=== PATIENT | female | born 1995 | race Caucasian/White ===

== ENCOUNTER 2018-01-08 17:58 | Emergency (ER) | payer OTHER ==
[2018-01-08 18:27] VITALS: BP 134/68; PULSE 105; O2SAT 97
[2018-01-08] MEDS ORDERED: Sodium Chloride 0.9% 1000 ML 1,000 ML IV STA (19:12)
[2018-01-08] MEDS ORDERED: Sodium Chloride 0.9% 1000 ML 1,000 ML ONE (19:17)
[2018-01-08 19:35] LABS: BASOPHIL % 0.3 % (0.0-0.4); Basophil (Absolute #) 0.02 (0-0.4); Eosinophil % 2.6 % (0.00-5.0); Eosinophil (Absolute #) 0.18 (0-0.5); Granulocyte Absolute (ANC) 4.32 (1.4-6.9); Granulocytes % 61.3 % (36.0-66.0); Hematocrit 42.1 % (35-47); Hemoglobin 14.3 gm/dl (12.0-16.0); Lymphocyte (Absolute #) 2.18 (1.0-4.6); Mean Corpuscular Hemoglobin 28.5 pg (26-32); Mean Platelet Volume 11.3 fl (6-9.5); Monocyte (Absolute #) 0.34 (0.0-1.3); Monocytes % 4.8 % (0.0-12.0); Platelet Count 191 K/mm3 (150-450); Red Blood Count 5.01 M/mm3 (4.1-5.4); Red Cell Distribution Width 13.7 % (11.5-14.0)
--- NOTE | 2018-01-08 19:38 | ERPHSYRPT ---
- History of Present Illness Time Seen by Provider: 01/08/18 19:09 Historian: patient Exam Limitations: no limitations Patient Subjective Stated Complaint: pt here to find out if she is took 6 test and 2 came back positive, and states her dr will not see her. pt also co abd pain for a week. Triage Nursing Assessment: pt alert, resp easy, skin w/d/p,skin w/d/p. abd soft Physician History: Pt started c/o bilateral abdominal cramps x 3 days, nausea, denies vomiting, fever, chills, diarrhea or urinary complaints. She states, her last, normal menstrual period was 5 weeks ago, and she had 2 positive out of 6 tests at home. She had normal vaginal 11 months ago, denies surgeries or any complications. Timing/Duration: day(s) (3) Activities at Onset: none Quality: cramping Abdominal Pain Onset Location: RUQ, LUQ Pain Radiation: no radiation Severity of Pain-Max: moderate Severity of Pain-Current: none Modifying Factors: Improves With: nothing Associated Symptoms: nausea, other (white vaginal discharge) Previous symptoms: no prior history Allergies/Adverse Reactions: amoxicillin [From Augmentin] Allergy (Verified 01/08/18 18:17) clavulanic acid [From Augmentin] Allergy (Verified 01/08/18 18:17) latex Allergy (Verified 01/08/18 18:17) Sulfa (Sulfonamide Antibiotics) Allergy (Verified 01/08/18 18:17) Home Medications: No Reportable Medications [No Reported Medications] 01/08/18 [History] Hx Tetanus, Diphtheria Vaccination/Date Given: Yes Hx Influenza Vaccination/Date Given: No Hx Pneumococcal Vaccination/Date Given: No Immunizations Up to Date: Yes - Review of Systems Constitutional: No Symptoms Abdominal/Gastrointestinal: Abdominal Pain, Nausea Genitourinary Symptoms: Vaginal Discharge All Other Systems: Reviewed and Negative - Past Medical History Pertinent Past Medical History: No - Past Surgical History Past Surgical History: No - Social History Smoking Status: Current every day smoker Exposure to second hand smoke: Yes Drug Use: none Patient Lives Alone: No - Female History Hx Last Menstrual Period: 32 days ago Hx Now: Yes (unsure) - Nursing Vital Signs Nursing Vital Signs: Initial Vital Signs Temperature 99.5 F 01/08/18 18:10 Pulse Rate 105 H 01/08/18 18:10 Respiratory Rate 16 01/08/18 18:10 Blood Pressure 134/68 01/08/18 18:10 O2 Sat by Pulse Oximetry 97 01/08/18 18:10 Pain Scale Pain Intensity 0 - Physical Exam General Appearance: no apparent distress Eye Exam: eyes nml inspection Ears, Nose, Throat Exam: normal ENT inspection Neck Exam: normal inspection, non-tender, supple Respiratory Exam: normal breath sounds, lungs clear, airway intact Cardiovascular Exam: regular rate/rhythm, normal heart sounds, normal peripheral pulses, No murmur Gastrointestinal/Abdomen Exam: soft, normal bowel sounds, No tenderness, No distention, No mass, No guarding, No rebound, No hernia, No organomegaly Back Exam: normal inspection, No CVA tenderness Extremity Exam: normal inspection, calf tenderness, No pedal edema Neurologic Exam: alert, oriented x 3, normal mood/affect Skin Exam: normal color, warm, dry, No rash Lymphatic Exam: No adenopathy SpO2 Interpretation: normal SpO2: 97 Oxygen Delivery: Room Air - Course Nursing assessment & vital signs reviewed: Yes Ordered Tests: Active Orders 24 hr Category Date Time Status IV Insertion STAT Care 01/08/18 19:12 Active NPO (ED) STAT Care 01/08/18 19:12 Active ABDOMEN AND PELVIS W CONTRAST [CT] Stat Exams 01/08/18 20:27 Ordered CBC W DIFF Stat Lab 01/08/18 19:30 Completed CMP Stat Lab 01/08/18 19:30 Completed HCG, Quantitative (Inhouse) Stat Lab 01/08/18 19:30 Completed LIPASE Stat Lab 01/08/18 19:30 Completed UA W/RFX UR CULTURE Stat Lab 01/08/18 20:36 Completed Medication Summary Discontinued Medications Generic Name Dose Route Start Last Admin Trade Name Freq PRN Reason Stop Dose Admin Sodium Chloride 1,000 mls @ 999 mls/hr 01/08/18 19:12 01/08/18 19:41 Sodium Chloride 0.9% 1000 Ml IV 01/08/18 20:12 999 mls/hr .Q1H1M STA Administration Sodium Chloride Confirm 01/08/18 19:17 Sodium Chloride 0.9% 1000 Ml Administered 01/08/18 19:18 Dose 1,000 mls @ ud .ROUTE .[facility] Lab/Rad Data: Laboratory Result Diagrams 01/08/18 19:30 01/08/18 19:30 Laboratory Results 01/08/18 01/08/18 01/08/18 Range/Units 20:36 19:30 19:30 WBC 7.0 (4.0-10.5) K/mm3 RBC 5.01 (4.1-5.4) M/mm3 Hgb 14.3 (12.0-16.0) gm/dl Hct 42.1 (35-47) % MCV 84.0 (78-100) fl MCH 28.5 (26-32) pg MCHC 34.0 (32-36) g/dl RDW 13.7 (11.5-14.0) % Plt Count 191 (150-450) K/mm3 MPV 11.3 H (6-9.5) fl Gran % 61.3 (36.0-66.0) % Eos # (Auto) 0.18 (0-0.5) Absolute Lymphs (auto) 2.18 (1.0-4.6) Absolute Monos (auto) 0.34 (0.0-1.3) Lymphocytes % 31.0 (24.0-44.0) % Monocytes % 4.8 (0.0-12.0) % Eosinophils % 2.6 (0.00-5.0) % Basophils % 0.3 (0.0-0.4) % Absolute Granulocytes 4.32 (1.4-6.9) Basophils # 0.02 (0-0.4) Sodium 141 (137-145) mmol/L Potassium 3.5 (3.5-5.1) mmol/L Chloride 109 H (98-107) mmol/L Carbon Dioxide 23 (22-30) mmol/L Anion Gap 12.1 (5-15) MEQ/L BUN 12 (7-17) mg/dL Creatinine 0.62 (0.52-1.04) mg/dL Estimated GFR > 60.0 ML/MIN Glucose 97 (74-106) mg/dL Calcium 9.0 (8.4-10.2) mg/dL Total Bilirubin 0.40 (0.2-1.3) mg/dL AST 13 L (14-36) U/L ALT 13 (0-35) U/L Alkaline Phosphatase 64 (38-126) U/L Serum Total Protein 6.2 L (6.3-8.2) g/dL Albumin 3.7 (3.5-5.0) g/dL Lipase 42 (23-300) U/L Beta HCG, Quant < 2.39 mIU/ml Ur Collection Type VOID Urine Color YELLOW (YELLOW) Urine Appearance CLEAR (CLEAR) Urine pH 6.0 (5-6) Ur Specific [place] 1.020 (1.005-1.025) Urine Protein NEGATIVE (Negative) Urine Ketones NEGATIVE (NEGATIVE) Urine Blood NEGATIVE (0-5) Toni/ul Urine Nitrite NEGATIVE (NEGATIVE) Urine Bilirubin NEGATIVE (NEGATIVE) Urine Urobilinogen NORMAL (0-1) mg/dL Ur Leukocyte Esterase NEGATIVE (NEGATIVE) Urine Culture Reflexed NO (NO) Urine Glucose NEGATIVE (NEGATIVE) mg/dL Specimen Received 01-08 - Progress Progress: unchanged Progress Note: 01/08/18 21:10 I informed patient about labs, her quant. HCG<2.57, she is not , she is currently pain free, afebrile, and stable, I was planning to perform pelvic exam to do cultures, she refused further tests, and left AMA, understood all possible harmful ramifications of her decision. Counseled pt/family regarding: lab results - Departure Time of Disposition: 21:13 Departure Disposition: AMA Clinical Impression: Abdominal pain Qualifiers: Abdominal location: upper abdomen, unspecified Qualified Code(s): R10.10 - Upper abdominal pain, unspecified Condition: Stable Critical Care Time: No Referrals: DOCTOR,NO FAMILY [Primary Care Provider] - Instructions: Acute Abdomen (Belly Pain), Adult (DC) Additional Instructions: Return if severe pain, bleeding, fever> 102 F, follow up with your physician in 2-3 days!
[2018-01-08 19:55] LABS: ALBUMIN 3.7 g/dL (3.5-5.0); ALKALINE PHOSPHATASE 64 U/L (38-126); ANION GAP 12.1 MEQ/L (5-15); BLOOD UREA NITROGEN 12 mg/dL (7-17); CHLORIDE 109 mmol/L (98-107); Carbon Dioxide 23 mmol/L (22-30); Creatinine 1 0.62 mg/dL (0.52-1.04); Glucose 97 mg/dL (74-106); LIPASE 42 U/L (23-300); Potassium 3.5 mmol/L (3.5-5.1); SGOT/AST 13 U/L (14-36); SGPT/ALT 13 U/L (0-35); SODIUM 141 mmol/L (137-145); Total Protein 6.2 g/dL (6.3-8.2)
[2018-01-08 20:10] LABS: HCG, Quantitative (Inhouse) < 2.39 mIU/ml
[2018-01-08 20:41] LABS: Appearance CLEAR (CLEAR); Bilirubin NEGATIVE (NEGATIVE); Blood NEGATIVE Ery/ul (0-5); Glucose NEGATIVE (NEGATIVE); Ketones NEGATIVE (NEGATIVE); Leukocyte Esterase NEGATIVE (NEGATIVE); Nitrite NEGATIVE (NEGATIVE); Protein,Urine Dip NEGATIVE (Negative); Urobilinogen NORMAL mg/dL (0-1)
== END 2018-01-08 20:56 | disposition left against medical advice (07) ==
LOC: ED 17:58
DX: R10.11 Right upper quadrant pain (principal); R10.12 Left upper quadrant pain; R11.0 Nausea
CPT/HCPCS: 36000; 36415; 80053; 81002; 83690; 84702; 85025; 96374; 99284

== ENCOUNTER 2018-01-26 20:58 | Emergency (ER) | payer OTHER ==
[2018-01-26 21:24] VITALS: O2SAT 100
[2018-01-26] MEDS ORDERED: Norco 10/325 MG Tablet PO ONE (21:53)
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
[2018-01-26] MEDS ORDERED: Norco 10/325 MG Tablet ONE (22:03)
[2018-01-26 22:22] VITALS: BP 122/84; PULSE 67
== END 2018-01-26 22:22 | disposition home or self-care (01) ==
LOC: ED 20:58
DX: T23.232A Burn of second degree of multiple left fingers (nail), not including thumb, initial encounter (principal); X10.2XXA Contact with fats and cooking oils, initial encounter; Y93.G3 Activity, cooking and baking; Y92.090 Kitchen in other non-institutional residence as the place of occurrence of the external cause
CPT/HCPCS: 99283; A9270-GY

== ENCOUNTER → 2018-02-17 | Emergency (ER) | payer OTHER | END | disposition left against medical advice (07) | LOC: ED 19:34 | DX: Z53.9 Procedure and treatment not carried out, unspecified reason (principal) ==

== ENCOUNTER 2018-03-14 19:26 | Emergency (ER) | payer OTHER ==
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
[2018-03-14 20:45] LABS: BASOPHIL % 0.2 % (0.0-0.4); Basophil (Absolute #) 0.01 (0-0.4); Eosinophil % 2.5 % (0.00-5.0); Eosinophil (Absolute #) 0.16 (0-0.5); Granulocyte Absolute (ANC) 3.79 (1.4-6.9); Granulocytes % 59.3 % (36.0-66.0); Hematocrit 34.4 % (35-47); Hemoglobin 11.6 gm/dl (12.0-16.0); Lymphocyte (Absolute #) 2.02 (1.0-4.6); Lymphocytes % 31.7 % (24.0-44.0); Mean Cell Volume 84.7 fl (78-100); Mean Corpuscular Hgb Concent. 33.7 g/dl (32-36); Mean Platelet Volume 11.5 fl (6-9.5); Monocytes % 6.3 % (0.0-12.0); Platelet Count 210 K/mm3 (150-450); Red Blood Count 4.06 M/mm3 (4.1-5.4); Red Cell Distribution Width 13.3 % (11.5-14.0); White Blood Count 6.4 K/mm3 (4.0-10.5)
[2018-03-14 20:50] LABS: AMYLASE 46 U/L (30-110); LIPASE 40 U/L (23-300)
[2018-03-14 20:52] LABS: Mean Corpuscular Hemoglobin 28.5 pg (26-32)
[2018-03-14 21:06] LABS: Appearance SLIGHTLY CLOUDY (CLEAR); Glucose 100 mg/dL (NEGATIVE); Ketones MODERATE (NEGATIVE); Leukocyte Esterase 2+ (NEGATIVE); Nitrite NEGATIVE (NEGATIVE); Protein,Urine Dip TRACE (Negative)
[2018-03-14 21:07] LABS: Bacteria FEW /HPF (NEGATIVE); Bilirubin NEGATIVE (NEGATIVE); Blood NEGATIVE Ery/ul (0-5); Epithelial Cells MODERATE /HPF (FEW); Mucus SLIGHT /HPF (NEGATIVE); Urobilinogen NORMAL mg/dL (0-1); WBC 15-25 /HPF (0-5)
[2018-03-14] MEDS ORDERED: Macrobid 100MG Capsule PO ONE (21:37)
[2018-03-14] MEDS ORDERED: TYLENOL 325 MG PO STA (21:38)
[2018-03-14] MEDS ORDERED: TYLENOL 325 MG ONE (21:40)
[2018-03-14] MEDS ORDERED: Macrobid 100MG Capsule ONE (21:40)
[2018-03-14 22:05] VITALS: BP 123/61; PULSE 75; O2SAT 99
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
== END 2018-03-14 22:04 | disposition home or self-care (01) ==
LOC: ED 19:26
DX: O23.41 Unspecified infection of urinary tract in pregnancy, first trimester (principal); Z3A.08 8 weeks gestation of pregnancy; R10.2 Pelvic and perineal pain
CPT/HCPCS: 36415; 76801; 81000; 82150; 83690; 84702; 85025; 87086; 99284; A9270-GY

== ENCOUNTER 2018-04-07 15:28 | Emergency (ER) | payer OTHER ==
--- NOTE | 2018-04-07 16:54 | ERPHSYRPT ---
- History of Present Illness Time Seen by Provider: 04/07/18 16:53 Source: patient Exam Limitations: no limitations Patient Subjective Stated Complaint: pt here for vaginal bleeding last night. none today, cramping to lower abd since last night , has green vaginal in past but none today, pt states she is a high risk and sees dr soto at [facility] but has not seen in a month due to being in prison Triage Nursing Assessment: pt walked in, resp easy, skin w/d/p. no edema, abd soft, with pain to lower abd Physician History: The patient is a 22-year-old at approximately 10 weeks complaining that she had vaginal bleeding last night but none today. She is having cramping. However, the patient states she has had cramping for the last 30 days when she was placed in prison. She had some vaginal discharge of discoloration 3 days ago but none the last few days. She had of ultrasound done here at this hospital on March 14 which showed a small subchorionic hemorrhage. She has yet to see an OB doctor. Her past medical history is significant for depression. Timing/Duration: yesterday, improved Activites at Onset: none Quality: cramping Onset Location: abdominal pain Pain Radiation: none Severity of Pain-Max: mild Severity of Pain-Current: mild Prior abdominal problems: none Sexual intercourse history: non-contributory Modifying Factors: Improves With: nothing Associated Symptoms: Allergies/Adverse Reactions: amoxicillin [From Augmentin] Allergy (Verified 04/07/18 15:46) clavulanic acid [From Augmentin] Allergy (Verified 04/07/18 15:46) latex Allergy (Verified 04/07/18 15:46) Penicillins Allergy (Verified 04/07/18 15:46) Sulfa (Sulfonamide Antibiotics) Allergy (Verified 04/07/18 15:46) Home Medications: Vits W-Ca,Fe,FA(<1Mg) [] 1 ea DAILY 04/07/18 [History] Hx Tetanus, Diphtheria Vaccination/Date Given: Yes Hx Influenza Vaccination/Date Given: No Hx Pneumococcal Vaccination/Date Given: No - Review of Systems Constitutional: No Fever, No Chills Eyes: No Symptoms Ears, Nose, & Throat: No Symptoms Respiratory: No Cough, No Dyspnea Cardiac: No Chest Pain, No Edema, No Syncope Abdominal/Gastrointestinal: Abdominal Pain (cramping) Genitourinary Symptoms: Vaginal Bleeding, No Dysuria Musculoskeletal: No Back Pain, No Neck Pain Skin: No Rash Neurological: No Dizziness, No Focal Weakness, No Sensory Changes Psychological: No Symptoms Endocrine: No Symptoms Hematologic/Lymphatic: No Symptoms Immunological/Allergic: No Symptoms All Other Systems: Reviewed and Negative - Past Medical History Pertinent Past Medical History: Yes Neurological History: No Pertinent History ENT History: No Pertinent History Cardiac History: No Pertinent History Respiratory History: No Pertinent History Endocrine Medical History: No Pertinent History Musculoskeletal History: No Pertinent History GI Medical History: No Pertinent History History: No Pertinent History Psycho-Social History: No Pertinent History Female Reproductive Disorders: No Pertinent History Other Medical History: lumps on R lung and coughs up blood, PCOS - Past Surgical History Past Surgical History: No Neuro Surgical History: No Pertinent History Cardiac: No Pertinent History Respiratory: No Pertinent History Gastrointestinal: No Pertinent History Genitourinary: No Pertinent History Musculoskeletal: No Pertinent History Female Surgical History: No Pertinent History - Social History Smoking Status: Former smoker How long have you smoked: 5 years Exposure to second hand smoke: No Drug Use: none Patient Lives Alone: No (prison) - Female History Hx Last Menstrual Period: 02/24/18 Hx Now: Yes Expected Date of Delivery: 10/20/18 Gestational Age: 10 - Nursing Vital Signs Nursing Vital Signs: Initial Vital Signs Temperature 98.2 F 04/07/18 15:37 Pulse Rate 84 04/07/18 15:37 Respiratory Rate 16 04/07/18 15:37 Blood Pressure 129/67 04/07/18 15:37 O2 Sat by Pulse Oximetry 9 L 04/07/18 15:37 Pain Scale Pain Intensity 3 - Physical Exam General Appearance: no apparent distress, alert Eye Exam: PERRL/EOMI, eyes nml inspection Ears, Nose, Throat Exam: normal ENT inspection, TMs normal, pharynx normal, moist mucous membranes Neck Exam: normal inspection, non-tender, supple, full range of motion Respiratory Exam: normal breath sounds, lungs clear, No respiratory distress Cardiovascular Exam: regular rate/rhythm, normal heart sounds, normal peripheral pulses Gastrointestinal/Abdomen Exam: soft, No tenderness, No mass Pelvic Exam: not done Rectal Exam: not done Back Exam: normal inspection, normal range of motion, No CVA tenderness, No vertebral tenderness Extremity Exam: normal inspection, normal range of motion, pelvis stable Neurologic Exam: alert, oriented x 3, cooperative, swing grinder II-XII nml as tested, normal mood/affect, sensation nml, No motor deficits Skin Exam: normal color, warm, dry Lymphatic Exam: No adenopathy SpO2 Interpretation: normal SpO2: 9 Oxygen Delivery: Room Air - Radiology Ultrasound Exam OB Ultrasound: tele radiology report (pler U/S tech: neg), negative Ordered Tests: Active Orders 24 hr Category Date Time Status OB <14 WKS 1ST GESTATION [US] Stat Exams 04/07/18 17:09 Taken BMP Stat Lab 04/07/18 17:48 Completed CBC W DIFF Stat Lab 04/07/18 17:48 Completed CULTURE,URINE Stat Lab 04/07/18 18:32 Received HCG, Quantitative (Inhouse) Stat Lab 04/07/18 17:48 Completed UA W/RFX UR CULTURE Stat Lab 04/07/18 18:32 Completed Medication Summary Discontinued Medications Generic Name Dose Route Start Last Admin Trade Name Freq PRN Reason Stop Dose Admin Acetaminophen 325 mg 04/07/18 17:09 04/07/18 17:18 Tylenol 325 Mg PO 04/07/18 17:10 325 mg STAT ONE Administration Acetaminophen Confirm 04/07/18 17:17 Tylenol 325 Mg Administered 04/07/18 17:18 Dose 325 mg .ROUTE .STK-MED ONE Lab/Rad Data: Laboratory Result Diagrams 04/07/18 17:48 04/07/18 17:48 Laboratory Results 04/07/18 04/07/18 04/07/18 Range/Units 18:32 17:48 17:48 WBC 8.2 (4.0-10.5) K/mm3 RBC 4.16 (4.1-5.4) M/mm3 Hgb 12.0 (12.0-16.0) gm/dl Hct 35.8 (35-47) % MCV 86.1 (78-100) fl MCH 28.8 (26-32) pg MCHC 33.5 (32-36) g/dl RDW 13.3 (11.5-14.0) % Plt Count 175 (150-450) K/mm3 MPV 10.6 H (6-9.5) fl Gran % 70.2 H (36.0-66.0) % Eos # (Auto) 0.16 (0-0.5) Absolute Lymphs (auto) 1.90 (1.0-4.6) Absolute Monos (auto) 0.37 (0.0-1.3) Lymphocytes % 23.2 L (24.0-44.0) % Monocytes % 4.5 (0.0-12.0) % Eosinophils % 2.0 (0.00-5.0) % Basophils % 0.1 (0.0-0.4) % Absolute Granulocytes 5.74 (1.4-6.9) Basophils # 0.01 (0-0.4) Sodium 137 (137-145) mmol/L Potassium 3.8 (3.5-5.1) mmol/L Chloride 104 (98-107) mmol/L Carbon Dioxide 23 (22-30) mmol/L Anion Gap 13.8 (5-15) MEQ/L BUN 9 (7-17) mg/dL Creatinine 0.35 L (0.52-1.04) mg/dL Estimated GFR > 60.0 ML/MIN Glucose 82 (74-106) mg/dL Calcium 9.0 (8.4-10.2) mg/dL Beta HCG, Quant 45637 mIU/ml Urine Color AKUA (YELLOW) Urine Appearance CLOUDY (CLEAR) Urine pH 7.0 (5-6) Ur Specific [place] 1.027 (1.005-1.025) Urine Protein 30 (Negative) Urine Ketones NEGATIVE (NEGATIVE) Urine Blood NEGATIVE (0-5) Toni/ul Urine Nitrite NEGATIVE (NEGATIVE) Urine Bilirubin NEGATIVE (NEGATIVE) Urine Urobilinogen 2 (0-1) mg/dL Ur Leukocyte Esterase MODERATE (NEGATIVE) Urine WBC (Auto) 6-10 (0-5) /HPF Urine RBC (Auto) 3-5 (0-2) /HPF U Epithel Cells (Auto) MANY (FEW) /HPF Urine Bacteria (Auto) MODERATE (NEGATIVE) /HPF Calcium Oxalate Crystal 5-10 (NEGATIVE) /HPF Urine Mucus (Auto) MANY (NEGATIVE) /HPF Urine Culture Reflexed YES (NO) Urine Glucose 100 (NEGATIVE) mg/dL - Progress Progress: improved Counseled pt/family regarding: lab results, diagnosis, need for follow-up, rad results - Departure Time of Disposition: 19:06 Departure Disposition: Home Clinical Impression: Abdominal cramping, UTI (urinary tract infection) Condition: Stable Critical Care Time: No Referrals: KURTIS TRENT [Primary Care Provider] - Additional Instructions: You have abdominal cramping and a UTI. The ultrasound did not show any abnormalities with the . You were given half of a 325 mg tablet of Tylenol. [place] h[place] level [place] [id number], consistent with your . Take Macrobid 100 mg 2 times a day for 7 days. Stay well hydrated. Follow-up with your OB doctor.
[2018-04-07] MEDS ORDERED: TYLENOL 325 MG PO ONE (17:09)
[2018-04-07] MEDS ORDERED: TYLENOL 325 MG ONE (17:17)
[2018-04-07 17:49] LABS: BASOPHIL % 0.1 % (0.0-0.4); Basophil (Absolute #) 0.01 (0-0.4); Eosinophil (Absolute #) 0.16 (0-0.5); Granulocyte Absolute (ANC) 5.74 (1.4-6.9); Granulocytes % 70.2 % (36.0-66.0); Hematocrit 35.8 % (35-47); Lymphocytes % 23.2 % (24.0-44.0); Mean Cell Volume 86.1 fl (78-100); Mean Corpuscular Hemoglobin 28.8 pg (26-32); Mean Corpuscular Hgb Concent. 33.5 g/dl (32-36); Mean Platelet Volume 10.6 fl (6-9.5); Monocyte (Absolute #) 0.37 (0.0-1.3); Monocytes % 4.5 % (0.0-12.0); Platelet Count 175 K/mm3 (150-450); Red Blood Count 4.16 M/mm3 (4.1-5.4); Red Cell Distribution Width 13.3 % (11.5-14.0); White Blood Count 8.2 K/mm3 (4.0-10.5)
[2018-04-07 18:30] LABS: ANION GAP 13.8 MEQ/L (5-15); BLOOD UREA NITROGEN 9 mg/dL (7-17); CHLORIDE 104 mmol/L (98-107); Carbon Dioxide 23 mmol/L (22-30); Creatinine 1 0.35 mg/dL (0.52-1.04); Glucose 82 mg/dL (74-106); Potassium 3.8 mmol/L (3.5-5.1); SODIUM 137 mmol/L (137-145)
[2018-04-07 18:46] LABS: Appearance CLOUDY (CLEAR); Bilirubin NEGATIVE (NEGATIVE); Blood NEGATIVE Ery/ul (0-5); Glucose 100 mg/dL (NEGATIVE); Ketones NEGATIVE (NEGATIVE); Leukocyte Esterase MODERATE (NEGATIVE); Nitrite NEGATIVE (NEGATIVE); Protein,Urine Dip 30 (Negative); Specific Gravity 1.027 (1.005-1.025); Urobilinogen 2 mg/dL (0-1)
[2018-04-07 18:55] LABS: HCG, Quantitative (Inhouse) 77813 mIU/ml
[2018-04-07 19:23] VITALS: BP 101/39; PULSE 83; O2SAT 98
--- NOTE | 2018-04-08 08:33 | XRAY ---
Indication: Bleeding and cramping. 2-dimensional OB ultrasound performed. Comparison: March 14, 2018. Again there is a single intrauterine with mean crown-rump length measuring 5.25 cm corresponding to 12 weeks 0 days. heart rate 165 BPM. Previous small subchorionic hemorrhage resolved. Left and right ovaries unremarkable. No suspicious adnexal mass or free fluid. Impression: Again single viable intrauterine measuring 12 weeks 0 days. No new/acute findings. Comment: Preliminary report was given.
== END 2018-04-07 19:21 | disposition home or self-care (01) ==
LOC: ED 15:28
DX: O26.891 Other specified pregnancy related conditions, first trimester (principal); Z3A.10 10 weeks gestation of pregnancy; O23.41 Unspecified infection of urinary tract in pregnancy, first trimester
CPT/HCPCS: 36415; 76801; 80048; 81001; 84702; 85025; 87086; 99283; A9270-GY

== ENCOUNTER 2018-11-18 21:38 | Emergency (ER) | payer OTHER ==
[2018-11-18] MEDS ORDERED: PROVENTIL 2.5 MG/3 ML NEB IH ONE ×2 (22:27→22:33)
--- NOTE | 2018-11-18 22:47 | ERPHSYRPT ---
- History of Present Illness Time Seen by Provider: 11/18/18 22:21 Source: patient Exam Limitations: no limitations Patient Subjective Stated Complaint: cough since Saturday, had blood in sputum/ mucous today, sore throat, temp Triage Nursing Assessment: lungs clear, abd soft with active bs x4 quad. Heart tones reg. Pt c/o prod cough but I have only witnessed dry cough. Pt had Baby September 29 and states, "I could be Z". Physician History: C/o nonproductive cough, congestion, low grade fever since Saturday ( 2 days), sore throat, denies severe headaches, vomiting, chest pain, other complaints. She had on Sep.29, not breast feeding. Timing/Duration: day(s) (2) Cough Quality/Degree: moderate, dry cough Possible Cause: occasional episodes Associated Symptoms: cough, nasal congestion, sinus infection, sore throat Allergies/Adverse Reactions: amoxicillin [From Augmentin] Allergy (Verified 04/07/18 15:46) clavulanic acid [From Augmentin] Allergy (Verified 04/07/18 15:46) latex Allergy (Verified 04/07/18 15:46) Penicillins Allergy (Verified 04/07/18 15:46) Sulfa (Sulfonamide Antibiotics) Allergy (Verified 04/07/18 15:46) Home Medications: Ferrous Sulfate [Iron] 325 mg PO BID 11/18/18 [History] Hx Tetanus, Diphtheria Vaccination/Date Given: Yes Hx Influenza Vaccination/Date Given: No Hx Pneumococcal Vaccination/Date Given: No Immunizations Up to Date: Yes - Review of Systems Constitutional: Chills Eyes: No Symptoms Ears, Nose, & Throat: Nose Congestion, Throat Pain Respiratory: Cough Cardiac: No Symptoms Abdominal/Gastrointestinal: No Symptoms Genitourinary Symptoms: No Symptoms Musculoskeletal: No Symptoms Skin: No Symptoms Neurological: No Symptoms All Other Systems: Reviewed and Negative - Past Medical History Pertinent Past Medical History: Yes Neurological History: No Pertinent History ENT History: No Pertinent History Cardiac History: No Pertinent History Respiratory History: Bronchitis Endocrine Medical History: No Pertinent History Musculoskeletal History: No Pertinent History GI Medical History: GERD History: No Pertinent History Psycho-Social History: Anxiety, Depression Female Reproductive Disorders: Other Other Medical History: lumps on R lung and coughs up blood, PCOS - Past Surgical History Past Surgical History: No Neuro Surgical History: No Pertinent History Cardiac: No Pertinent History Respiratory: No Pertinent History Gastrointestinal: No Pertinent History Genitourinary: No Pertinent History Musculoskeletal: No Pertinent History Female Surgical History: No Pertinent History - Social History Smoking Status: Current every day smoker How long have you smoked: 7 years Exposure to second hand smoke: No Drug Use: none Patient Lives Alone: No - Female History Hx Last Menstrual Period: 11 months ago Hx Now: (unsure) - Nursing Vital Signs Nursing Vital Signs: Initial Vital Signs Respiratory Rate 16 11/18/18 21:43 O2 Sat by Pulse Oximetry 94 L 11/18/18 21:43 Pain Scale Pain Intensity 0 - Physical Exam General Appearance: no apparent distress Eye Exam: eyes nml inspection Ears, Nose, Throat Exam: normal ENT inspection, TMs normal, pharynx normal, moist mucous membranes Neck Exam: normal inspection, non-tender, supple, No JVD, No lymphadenopathy Respiratory Exam: normal breath sounds, lungs clear, airway intact, No chest tenderness, No respiratory distress Cardiovascular Exam: regular rate/rhythm, normal heart sounds, normal peripheral pulses, No murmur Gastrointestinal/Abdomen Exam: soft, normal bowel sounds, No tenderness Back Exam: normal inspection, No CVA tenderness Extremity Exam: normal inspection, No calf tenderness Neurologic Exam: alert, oriented x 3, normal mood/affect Skin Exam: normal color, warm, dry, No rash, No petechiae Lymphatic Exam: No adenopathy SpO2 Interpretation: borderline oxygenation SpO2: 94 O2 Delivery: Room Air - Course Nursing assessment & vital signs reviewed: Yes Ordered Tests: Active Orders 24 hr Category Date Time Status CHEST 2 VIEWS (PA AND LAT) Stat Exams 11/18/18 22:26 Ordered HCG,QUALITATIVE URINE Stat Lab 11/18/18 22:26 Uncollected Peak Expiratory Flow Rate ONCE RT 11/18/18 22:42 Active Respiratory Therapy Assessment DAILY RT 11/18/18 22:42 Active Medication Summary Discontinued Medications Generic Name Dose Route Start Last Admin Trade Name Freq PRN Reason Stop Dose Admin Albuterol Sulfate 2.5 mg 11/18/18 22:27 11/18/18 22:37 Proventil 2.5 Mg/3 Ml Neb IH 11/18/18 22:28 2.5 mg STAT ONE Administration Albuterol Sulfate Confirm 11/18/18 22:33 Proventil 2.5 Mg/3 Ml Neb Administered 11/18/18 22:34 Dose 2.5 mg IH .STK-MED ONE Lab/Rad Data: Laboratory Results 11/18/18 Range/Units 22:41 Group A Strep Antibody NEGATIVE (NEGATIVE) - Progress Progress: unchanged Air Movement: good Progress Note: 11/19/18 00:40 Pt refused to wait for Chest X ray any longer, explained negative Strep test, she is being discharged to continue drinking plenty of fluids, and gargle frequently, irrigate sinuses, and follow up with her physician in 1 week, she was discharged on Tessalon perles, and Zyrtec . Blood Culture(s) Obtained: No Antibiotics given: No Counseled pt/family regarding: lab results, diagnosis, need for follow-up - Departure Departure Disposition: Home Clinical Impression: Sinusitis Qualifiers: Sinusitis location: unspecified location Chronicity: unspecified Qualified Code (s): J32.9 - Chronic sinusitis, unspecified Condition: Stable Critical Care Time: No Referrals: KURTIS TRENT [Primary Care Provider] - Instructions: Cough, Adult (DC), Sinusitis, Adult (DC) Additional Instructions: Rest x 2-3 days, drink plenty of fluids, and gargle frequently with warm saline solution, follow up with your physician in 1 week, return if severe pain, shortness of breath, vomiting, fever> 102 F! Prescriptions: Benzonatate [Tessalon Perle] 100 mg PO TID PRN #30 capsule PRN Reason: Cough Cetirizine HCl [Zyrtec] 10 mg PO DAILY #15 tab.chew
[2018-11-19 00:51] VITALS: BP 132/83; PULSE 112; O2SAT 96
== END 2018-11-19 00:56 | disposition home or self-care (01) ==
LOC: ED 21:38
DX: J32.9 Chronic sinusitis, unspecified (principal)
CPT/HCPCS: 84703; 87651; 94150; 94640; 99283; J7609; A9270-GY